=== PATIENT | female | born 1965 | race Two or more races ===

== ENCOUNTER 2022-06-06 10:39 | Emergency (ER) | payer OTHER ==
[2022-06-06 10:44] VITALS: PULSE 96; TEMP 98.6; BMI 27.4
[2022-06-06] MEDS ORDERED: SODIUM CHLORIDE 0.9% 500 ML INFUS.BAG IV ONE (11:17)
[2022-06-06] MEDS ORDERED: ACETAMINOPHEN 1000 MG/100 ML BAG IVPB ONE (11:17)
[2022-06-06] MEDS ORDERED: METOCLOPRAMIDE HCL INJECTION 10 MG/2 ML VIAL IVPB ONE (11:17)
[2022-06-06] MEDS ORDERED: METHOCARBAMOL 500 MG TABLET PO ONE (11:52)
[2022-06-06] MEDS ORDERED: ACETAMINOPHEN INJECTION 100 ML IVPB ONE (11:56)
[2022-06-06] MEDS ORDERED: METOCLOPRAMIDE HCL INJECTION 10 MG/2 ML VIAL ONE (11:56)
[2022-06-06 12:42] LABS: BASO % 0.9 % (0-2.0); EOS % 2.6 % (0-4.5); HEMATOCRIT 42.6 % (32.4-45.2); HEMOGLOBIN 15.3 GM/dL (10.7-15.3); LYMPH % 37.1 % (8-40); MCHC 35.8 g/dl (32.0-36.0); MEAN CELL VOLUME 86.7 fl (80-96); MEAN PLT VOLUME 7.1 fl (7.5-11.1); MONO % 7.5 % (3.8-10.2); NEUT % 51.9 % (42.8-82.8); PLATELET COUNT 279 10^3/uL (134-434); RBC 4.92 M/mm3 (3.60-5.2); RDW 13.4 % (11.6-15.6); WHITE BLOOD COUNT 4.9 K/mm3 (4.0-10.0)
[2022-06-06 12:59] LABS: ACTIVATED PTT 32.4 SECONDS (25.2-36.5); INR 1.05 (0.83-1.09); PROTHROMBIN TIME (PATIENT) 12.1 SEC (9.7-13.0)
[2022-06-06 13:06] LABS: CALCIUM 9.4 mg/dL (8.5-10.1)
[2022-06-06 13:07] LABS: ALBUMIN 4.2 g/dl (3.4-5.0); BLOOD UREA NITROGEN 12.6 mg/dL (7-18); MAGNESIUM 2.2 mg/dL (1.8-2.4)
[2022-06-06] MEDS ORDERED: METHOCARBAMOL 500 MG TABLET ONE (13:08)
[2022-06-06 13:10] LABS: CREATININE 0.6 mg/dL (0.55-1.3)
[2022-06-06 13:12] LABS: TOT PROT 7.4 g/dl (6.4-8.2)
[2022-06-06 13:25] VITALS: BP 139/88; RESP 11
== END 2022-06-06 15:30 | disposition home or self-care (01) ==
LOC: JER 10:39
PROC: 3E0333Z Introduction of Anti-inflammatory into Peripheral Vein, Percutaneous Approach (ICD-10-PCS; principal; 2022-06-06)
PROC: 3E033GC Introduction of Other Therapeutic Substance into Peripheral Vein, Percutaneous Approach (ICD-10-PCS; 2022-06-06)
DX: R07.9 Chest pain, unspecified (principal); R55 Syncope and collapse; R51.9 Headache, unspecified
CPT/HCPCS: 36415; 70450-TC; 71045-TC-FY; 80053; 82962; 83735; 84484; 85025; 85610; 85730; 93005; 93010; 96374; 96375; 99285-25